=== PATIENT | female | born 1975 | race Caucasian/White ===

== ENCOUNTER 2020-12-29 08:30 | Day surgery (SDC) | payer OTHER ==
[2020-12-29] MEDS ORDERED: fentaNYL 100 MCG/2 ML SDV ONE (08:38)
[2020-12-29] MEDS ORDERED: Propofol 200 MG/20 ML SDV ONE (08:38)
[2020-12-29] MEDS ORDERED: Midazolam 1 MG/ML 2 ML SDV ONE (08:38)
[2020-12-29] MEDS ORDERED: Lidocaine 2% 5 ML SDV ONE (08:39)
[2020-12-29] MEDS ORDERED: Ketorolac 30 MG/ML SDV ONE (08:39)
[2020-12-29] MEDS ORDERED: Glycopyrrolate 0.2 MG/ML SDV ONE (08:39)
[2020-12-29] MEDS ORDERED: Ondansetron 4 MG/2 ML SDV ONE (08:39)
[2020-12-29] MEDS ORDERED: Metoclopramide 10 MG/2 ML SDV IVPUSH PRN (09:49)
[2020-12-29] MEDS ORDERED: fentaNYL 100 MCG/2 ML SDV IVPUSH PRN (09:49)
[2020-12-29] MEDS ORDERED: HYDROmorphone 1 MG/ML Syringe IVPUSH PRN (09:49)
[2020-12-29] MEDS ORDERED: Ondansetron 4 MG/2 ML SDV IVPUSH PRN (09:49)
[2020-12-29] MEDS ORDERED: Naloxone 0.4 MG/ML SDV IVPUSH PRN (09:49)
[2020-12-29] MEDS ORDERED: Albuterol 0.083% 2.5 MG/3 ML Neb Soln NEB PRN (09:49)
[2020-12-29] MEDS ORDERED: Morphine 2 MG/ML SYRINGE IVPUSH PRN (09:49)
--- NOTE | 2020-12-29 09:51 | PCM.PREANE ---
Preanesthetic Assessment - Procedure Proposed Procedure: Dx Hysteroscopy, Polypectomy, D&C - Anesthesia/Transfusion/Family Hx Anesthesia History: Prior Anesthesia Without Reaction Family History of Anesthesia Reaction: No Transfusion History: No Prior Transfusion(s) - Review of Systems General: No Symptoms Pulmonary: No Symptoms Cardiovascular: No Symptoms Gastrointestinal: No Symptoms (Some Reflux when ) Neurological: No Symptoms - Physical Assessment NPO Status Date: 12/28/20 NPO Status Time: 21:00 Vital Signs: Last Vital Signs Temp 97.2 F 12/29/20 09:09 Pulse 63 12/29/20 09:09 Resp 16 12/29/20 09:09 BP 106/65 12/29/20 09:09 Pulse Ox 100 12/29/20 09:09 Height: 5 ft 5 in Weight: 61.235 kg ASA Class: 1 Mental Status: Alert & Oriented x3 Airway Class: Mallampati = 2 Dentition: Reports: Normal Dentition Thyro-Mental Finger Breadths: 3 Mouth Opening Finger Breadths: 3 ROM/Head Extension: Full Lungs: Clear to Auscultation, Normal Respiratory Effort Cardiovascular: Regular Rate, Regular Rhythm - Lab Values: Laboratory Last Values WBC 5.52 K/uL (4.0-11.0) 12/29/20 09:20 RBC 4.17 M/uL (4.30-5.90) L 12/29/20 09:20 Hgb 12.3 g/dL (12.0-16.0) 12/29/20 09:20 Hct 36.4 % (36.0-46.0) 12/29/20 09:20 MCV 87.3 fL (80.0-98.0) 12/29/20 09:20 MCH 29.5 pg (27.0-32.0) 12/29/20 09:20 MCHC 33.8 g/dL (31.0-37.0) 12/29/20 09:20 RDW Std Deviation 41.8 fl (28.0-62.0) 12/29/20 09:20 RDW Coeff of Edwige 13 % (11.0-15.0) 12/29/20 09:20 Plt Count 240 K/uL (150-400) 12/29/20 09:20 MPV 9.40 fL (7.40-12.00) 12/29/20 09:20 Neut % (Auto) 49.1 % (48.0-80.0) 12/29/20 09:20 Lymph % (Auto) 38.2 % (16.0-40.0) 12/29/20 09:20 [place]on % (Auto) 8.2 % (0.0-15.0) 12/29/20 09:20 Eos % (Auto) 4.0 % (0.0-7.0) 12/29/20 09:20 Baso % (Auto) 0.5 % (0.0-1.5) 12/29/20 09:20 Neut # (Auto) 2.7 K/uL (1.4-5.7) 12/29/20 09:20 Lymph # (Auto) 2.1 K/uL (0.6-2.4) 12/29/20 09:20 Fallon # (Auto) 0.5 K/uL (0.0-0.8) 12/29/20 09:20 Eos # (Auto) 0.2 K/uL (0.0-0.7) 12/29/20 09:20 Baso # (Auto) 0.0 K/uL (0.0-0.1) 12/29/20 09:20 Nucleated RBC % 0.0 /100WBC 12/29/20 09:20 Nucleated RBCs # 0 K/uL 12/29/20 09:20 - Allergies Allergies/Adverse Reactions: Allergies Allergy/AdvReac Type Severity Reaction Status Date / Time adhesive tape Allergy Rash Verified 12/26/20 09:59 - Acknowledgements Anesthesia Type Planned: General Anesthesia Pt an Appropriate Candidate for the Planned Anesthesia: Yes Alternatives and Risks of Anesthesia Discussed w Pt/Guardian: Yes Pt/Guardian Understands and Agrees with Anesthesia Plan: Yes PreAnesthesia Questionnaire HEENT History: Reports: Other (See Below) Other HEENT History: wears glasses/contacts Cardiovascular History: Reports: None Respiratory History: Reports: None Gastrointestinal History: Reports: None Genitourinary History: Reports: None 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: Musculoskeletal History: Reports: None Neurological History: Reports: None Psychiatric History: Reports: None Endocrine/Metabolic History: Reports: None Hematologic History: Reports: None Immunologic History: Reports: None Oncologic (Cancer) History: Reports: None Dermatologic History: Reports: None - Past Surgical History Head Surgeries/Procedures: Reports: None HEENT Surgical History: Reports: None Cardiovascular Surgical History: Reports: None Respiratory Surgical History: Reports: None GI Surgical History: Reports: None Female Surgical History: Reports: Breast Biopsy, Section Endocrine Surgical History: Reports: None Neurological Surgical History: Reports: None Musculoskeletal Surgical History: Reports: None Oncologic Surgical History: Reports: Biopsy of Breast Dermatological Surgical History: Reports: None - SUBSTANCE USE Tobacco Use Status *Q: Never Tobacco User - HOME MEDS Home Medications: Home Meds Cholecalciferol (Vitamin D3) [Vitamin D3] 1 tab PO DAILY 12/26/20 [History] [facility]-3S/DHA/Epa/Fish Oil [[facility]-3 Fish Oil 1,000 mg Sfgl] 1 tab PO DAILY 12/26/20 [History] - CURRENT (IN HOUSE) MEDS Current Meds: Current Medications Discontinued Medications Fentanyl (Fentanyl 100 Mcg/2 Ml Sdv) Confirm Administered Dose 100 mcg .ROUTE .STK-MED ONE Stop: 12/29/20 08:39 Glycopyrrolate (Glycopyrrolate 0.2 Mg/Ml Sdv) Confirm Administered Dose 0.2 mg .ROUTE .STK-MED ONE Stop: 12/29/20 08:40 Ketorolac Tromethamine (Ketorolac 30 Mg/Ml Sdv) Confirm Administered Dose 30 mg .ROUTE .STK-MED ONE Stop: 12/29/20 08:40 Lidocaine (Lidocaine 2% 5 Ml Sdv) Confirm Administered Dose 5 ml .ROUTE .STK-MED ONE Stop: 12/29/20 08:40 Midazolam HCl (Midazolam 1 Mg/Ml 2 Ml Sdv) Confirm Administered Dose 2 mg .ROUTE .STK-MED ONE Stop: 12/29/20 08:39 Miscellaneous Medication (Phenylephrine Hcl In 0.9% Nacl 1 Mg/10 Ml Syringe) Confirm Administered Dose 1 mg .ROUTE .STK-MED ONE Stop: 12/29/20 08:48 Ondansetron HCl (Ondansetron 4 Mg/2 Ml Sdv) Confirm Administered Dose 4 mg .ROU TE .STK-MED ONE Stop: 12/29/20 08:40 Propofol (Propofol 200 Mg/20 Ml Sdv) Confirm Administered Dose 200 mg .ROUTE .STK-MED ONE Stop: 12/29/20 08:39
--- NOTE | 2020-12-29 11:28 | PCM.OPNOTE ---
<Janette Oleary - Last Filed: 12/29/20 11:23> - General Post-Op/Procedure Note Date of Surgery/Procedure: 12/29/20 Operative Procedure(s): Diagnostic hysteroscopy, myosure polypectomy, and dilation and curettage Findings: Normal size, anteverted 8cm uterus. Two endometrial polyps with fluffy endometrium Pre Op Diagnosis: 45-year-old female with menorrhagia Post-Op Diagnosis: Same Anesthesia Technique: General LMA Primary Surgeon: Catina Hyde [place] Machine Operator: Janette Oleary Pathology: Two endometrial polyps and curettings Fluid Replacement, Intraop: 500 EBL in mLs: 10 Complications: None known Condition: Stable <Catina Hyde - Last Filed: 12/29/20 11:36> - General Post-Op/Procedure Note Pre Op Diagnosis: Endometrial polyps. Uterine leiomyoma Post-Op Diagnosis: Same Free Text/Narrative:: Intake & Output 12/28/20 12/29/20 12/29/20 22:59 06:59 14:59 Intake Total 500 Output Total 100 Balance 400 Hysteroscopic fluid deficit 100cc NS I have reviewed and agree with the above. Please see dictation #[id number] for further details.
[2020-12-29] MEDS ORDERED: Ketorolac 30 MG/ML SDV IVPUSH ONE (11:30)
--- NOTE | 2020-12-29 11:30 | PCM.POSTAN ---
POST ANESTHESIA ASSESSMENT - MENTAL STATUS Mental Status: Somnolent - VITAL SIGNS Vital Signs: Last Vital Signs Temp 97.5 F 12/29/20 11:19 Pulse 54 L 12/29/20 11:25 Resp 12 12/29/20 11:25 BP 106/61 12/29/20 11:25 Pulse Ox 100 12/29/20 11:25 - RESPIRATORY Respiratory Status: Respiratory Rate WNL, Airway Patent, O2 Saturation Stable - CARDIOVASCULAR CV Status: Pulse Rate WNL, Blood Pressure Stable - GASTROINTESTINAL GI Status: No Symptoms - PAIN Free Text/Narrative:: Resting comfortably - POST OP HYDRATION Hydration Status: Adequate & Stable
--- NOTE | 2020-12-29 14:34 | OR ---
SURGEON: Catina Hyde MD DATE OF PROCEDURE: 12/29/2020 PREOPERATIVE DIAGNOSES: 1. A 45-year-old with heavy menstrual bleeding. 2. Endometrial polyp. 3. Uterine leiomyoma. POSTOPERATIVE DIAGNOSES: 1. A 45-year-old with heavy menstrual bleeding. 2. Endometrial polyp. 3. Uterine leiomyoma. PROCEDURES: Diagnostic hysteroscopy, MyoSure polypectomy, and dilation and curettage. PRIMARY SURGEON: Catina Hyde MD ANESTHESIA: General LMA. SIEVE GRADER TENDER: Janette Lee, medical student. INTRAVENOUS FLUIDS: 500 mL LR. ESTIMATED BLOOD LOSS: 10 mL. HYSTEROSCOPIC FLUID DEFICIT: 100 mL of normal saline. FINDINGS: Normal-sized anteverted uterus sounding to 8 cm. Two endometrial polyps amongst a bed of fluffy endometrium. PATHOLOGY: Endometrial polyps and curettings. PROCEDURE IN DETAIL: The patient was taken to the operating room where LMA was administered without difficulty. She was placed in a dorsal lithotomy position, was placed in [facility]. She was prepared and draped in normal sterile fashion. An exam under anesthesia revealed normal anteverted uterus. A Graves speculum was inserted into the vagina. An Allis clamp was used to grasp the posterior lip of the cervix. The cervical os was sequentially dilated to accommodate the 7 mm MyoSure hysteroscope with Hegar dilators. The uterus was sounded to 8 cm. A 7 mm hysteroscope was introduced under direct visualization, and the uterus was distended with normal saline. Aforementioned findings were noted. The MyoSure device was then introduced and used to perform polypectomy. The hysteroscope was then withdrawn. The uterus was curetted with a medium curette in a clockwise fashion until a gritty feeling was noted in all aspects of the uterus. The Allis clamp was removed from the cervix, and good hemostasis was noted. Speculum was removed from the vagina. The patient tolerated the procedure well. All sponge, lap, and needle counts were correct x2. The patient was awakened and taken to recovery room in stable condition. [id number] / MODL /[id number]
== END 2020-12-29 13:12 | disposition home or self-care (01) ==
LOC: MW.SDS 08:30
PROVIDERS: ATTEND Obstetrics & Gynecology
DX: N84.0 Polyp of corpus uteri (principal); D25.9 Leiomyoma of uterus, unspecified; G43.909 Migraine, unspecified, not intractable, without status migrainosus; Z98.890 Other specified postprocedural states
CPT/HCPCS: 36415; 58558; 84703; 85025; 88305; J2250; J2370; J2704; J3490; 00952; J1885; J2405; J3010